=== PATIENT | male | born 1950 | race Caucasian/White ===

== ENCOUNTER 2017-07-09 09:00 | Outpatient (RCR) ==
--- NOTE | 2017-06-24 17:03 | RS.OTDNOTE ---
Subjective Date of Note: 06/24/17 Visit #: 3 Date of Evaluation: 06/19/17 Payer Source: MEDICARE Date of Onset/Injury/Change in Status: 08/25/16 Surgery Performed?: Yes Treatment Diagnosis: Right adhesive capsulitis Treatment Side (optional): Right *Precautions: At risk for frozen shoulder Prior Level of Function.....Patient was independent with: ADL's, Self Care, Work /Vocation, Caregiving, Ambulation/Mobility, Community Integration/Access History of Condition/Mechanism of Injury: Pt began having pain in the Right shoulder in August of this year. His pain progressed and his function decreased. Pt had a Right shoulder manipulation on 06/19/17. Level of Function: Pt has difficulty with carrying items, lifting, and moving. Functional Limitations: Sleep, ADL's, Reaching, Pushing, Pulling, Lifting, Carrying Current Complaints/Gains: Pt complains of popping feeling and pain in the Right shoulder. Pt has pain with full shoulder flexion. Pain Assessment - Pain Description Pain Description: Tightness Pain Location: Right anterior deltoid of RUE shoulder. Pectoralis major tender. Pain with internal rotation. Pain Description: sore Current Pain Intensity: 3 Modalities - Treatment Modality: Ultrasound Parameters/Method Applied: .4 w/cm2 for 8 minutes to RUE anterior deltoid with RUE behind his back. Treatment Area: Right anterior deltoid, Pt in supine and RUE in EXT. Rot. and Int. Rot. Patient Position: Supine - Hot Pack/Cryotherapy Treatment: Cryotherapy Interventions - Exercise/Activities Exercise/Activities/Manual Therapy: Pt educated regarding home exercise program , US to right shoulder to decrease shoulder pain. Pt completed isometric exercises holding 5 seconds each rep for : shoulder adduction x 10 reps, abduction x 10 reps, Int. Rot. x 10 reps, Ext. Rot. x 10 reps, shoulder flexion x 10 reps, shoulder extension x 10 reps. Pt inclined to 45 degrees for Arom of shoulder flexion. HOME EXERCISE PROGRAM: Pendulum exercises, stretching supine: shldr flexion, abduction, adduction, int. rot. , ext. rot. - Objective Findings Objective Findings:: soreness with full supine shoulder flexion. - Charges Total Direct Minutes: 45 Total Treatment Time: 55 Procedures billed for this date of service:: EX x 2, US, CP Assessment Assessment: Pt AROM is improving. Pt has popping in the Right shoulder. Pt Patient Education: Education of diagnosis, Home Exercise Program, Education of Plan of Care Problems/Comments: OT added isometric exercises to help balance the strength of the rotator cuff tendons. Patient demonstrates compliance with HEP?: Yes Short Term Goals Goal #1: Pt to increase Internal Rotation to be WFL. Goal to be met by: 06/26/17 Progress towards goal: Progressing Goal #2: Pt to increase RUE strength to 4/5. Goal to be met by: 06/26/17 Progress towards goal: Progressing Goal #3: Pt to increase RUE strength to 4/5. Goal to be met by: 07/03/17 Progress towards goal: Progressing Goal #4: Pt to have full shoulder flexion in sitting position. 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 Goal to be met by: 07/10/17 Progress towards goal: Progressing Goal #2: Pt to increase RUE strength to 4+/5. Goal to be met by: 07/10/17 Progress towards goal: Progressing Goal #3: Pt to be independent with HEP. Goal to be met by: 07/10/17 Progress towards goal: Progressing Goal #4: Pt to have full AROM of RUE. Goal to be met by: 07/10/17 Progress towards goal: Progressing Plan PLAN OF CARE EXPIRES ON:: 07/17/17 ORDER # VISITS AND/OR THROUGH DATE: 07/17/17 PLAN: Continue Plan of Care Frequency: 3 X week Duration: 3 weeks
--- NOTE | 2017-06-25 16:57 | RS.OTDNOTE ---
Subjective Date of Note: 06/25/17 Visit #: 4 Date of Evaluation: 06/19/17 Payer Source: MEDICARE Date of Onset/Injury/Change in Status: 08/25/16 Surgery Performed?: Yes Treatment Diagnosis: Right adhesive capsulitis Treatment Side (optional): Right *Precautions: At risk for frozen shoulder Prior Level of Function.....Patient was independent with: ADL's, Self Care, Work /Vocation, Caregiving, Ambulation/Mobility, Community Integration/Access History of Condition/Mechanism of Injury: Pt began having pain in the Right shoulder in August of this year. His pain progressed and his function decreased. Pt had a Right shoulder manipulation on 06/19/17. Level of Function: Pt has difficulty with carrying items, lifting, and moving. Functional Limitations: Sleep, ADL's, Reaching, Pushing, Pulling, Lifting, Carrying Current Complaints/Gains: Popping and clicking in the RUE shoulder with shoulder flexion and codman's. Pain Assessment - Pain Description Pain Description: Aching Pain Location: Right anterior deltoid of RUE shoulder. Pectoralis major tender. Pain with internal rotation, shoulder flexion. Pain Description: aches Current Pain Intensity: 2/10 Modalities - Treatment Modality: Ultrasound Parameters/Method Applied: .4 w/cm2 for 8 minutes to anterior deltoid and bursa area. Treatment Area: RUE in ext. Rot. and then moved to Internal rotation Patient Position: Supine - Hot Pack/Cryotherapy Treatment: Cryotherapy Interventions - Exercise/Activities Exercise/Activities/Manual Therapy: Pt educated regarding home exercise program , US to right shoulder to decrease shoulder pain. Pt completed isometric exercises holding 5 seconds each rep for : shoulder adduction x 10 reps, abduction x 10 reps, Int. Rot. x 10 reps, Ext. Rot. x 10 reps, shoulder flexion x 10 reps, shoulder extension x 10 reps. Pt inclined to 45 degrees for Arom of shoulder flexion. Isolated supraspinatus strengthening of supine shoulder flexion to 45 degrees at a 90 degree angle from abduction x 15 reps to decrease the tendon weakness. HOME EXERCISE PROGRAM: Pendulum exercises, stretching supine: shldr flexion, abduction, adduction, int. rot. , ext. rot. - Objective Findings Objective Findings:: soreness with full supine shoulder flexion. - Charges Total Direct Minutes: 50 Total Treatment Time: 60 Procedures billed for this date of service:: EX x 2, US, CP Assessment Assessment: Pt's AROM is improving. Pt continues with some clicking and popping in his shoulder. Pt reports it is sore. Problems/Comments: clicking and popping of RUE shoulder Patient demonstrates compliance with HEP?: Yes Short Term Goals Goal #1: Pt to increase Internal Rotation to be WFL. Goal to be met by: 06/26/17 Progress towards goal: Progressing Goal #2: Pt to increase RUE strength to 4/5. Goal to be met by: 06/26/17 Progress towards goal: Progressing Goal #3: Pt to increase RUE strength to 4/5. Goal to be met by: 07/03/17 Progress towards goal: Progressing Goal #4: Pt to have full shoulder flexion in sitting position. Goal to be met by: 07/03/17 Progress towards goal: Progressing Assisted Goals Goal #1: Pt to increase Internal Rotation to be WNL. Goal to be met by: 07/10/17 Progress towards goal: Progressing Goal #2: Pt to increase RUE strength to 4+/5. Goal to be met by: 07/10/17 Progress towards goal: Progressing Goal #3: Pt to be independent with HEP. Goal to be met by: 07/10/17 Progress towards goal: Progressing Goal #4: Pt to have full AROM of RUE. Goal to be met by: 07/10/17 Progress towards goal: Progressing Plan PLAN OF CARE EXPIRES ON:: 07/17/17 ORDER # VISITS AND/OR THROUGH DATE: 07/17/17 Frequency: 3 X week Duration: 3 weeks
--- NOTE | 2017-06-29 10:26 | RS.OTDNOTE ---
Subjective Date of Note: 06/29/17 Visit #: 5 Date of Evaluation: 06/19/17 Payer Source: MEDICARE Date of Onset/Injury/Change in Status: 08/25/16 Surgery Performed?: Yes Treatment Diagnosis: Right adhesive capsulitis Treatment Side (optional): Right *Precautions: At risk for frozen shoulder Prior Level of Function.....Patient was independent with: ADL's, Self Care, Work /Vocation, Caregiving, Ambulation/Mobility, Community Integration/Access History of Condition/Mechanism of Injury: Pt began having pain in the Right shoulder in August of this year. His pain progressed and his function decreased. Pt had a Right shoulder manipulation on 06/19/17. Level of Function: Pt has difficulty with carrying items, lifting, and moving. Functional Limitations: Sleep, ADL's, Reaching, Pushing, Pulling, Lifting, Carrying Current Complaints/Gains: Pt states UE ROM and pain are much better and has been since manipulation. States he returns to MD in 2 or 3 wks and that a cortisone shot has mohinder discussed but pt reguards as a band-aid, not a fix. States popping continues in and points to anterior shoulder. Pain Assessment - Pain Description Pain Description: Aching Pain Location: Right anterior deltoid of RUE shoulder. Pectoralis major tender. Pain with internal rotation, shoulder flexion. Pain Description: aches Current Pain Intensity: 0 Worst Pain Intensity: 2 Modalities - Treatment Modality: Ultrasound Parameters/Method Applied: .04w/cm2 x 10 mins Treatment Area: anterior shoulder Patient Position: Sitting - Treatment Modality: Class 4 Laser Parameters/Method Applied: Edma protocol Treatment Area: shoulder - Hot Pack/Cryotherapy Treatment: Cryotherapy (Ice massage performed with MT x 5-6 mins) Interventions - Exercise/Activities Exercise/Activities/Manual Therapy: Pt educated regarding home exercise program , US to right shoulder to decrease shoulder pain. Pt completed isometric exercises holding 5 seconds each rep for : shoulder adduction x 10 reps, abduction x 10 reps, Int. Rot. x 10 reps, Ext. Rot. x 10 reps, shoulder flexion x 10 reps, shoulder extension x 10 reps. Pt inclined to 45 degrees for Arom of shoulder flexion. Isolated supraspinatus strengthening of supine shoulder flexion to 45 degrees at a 90 degree angle from abduction x 15 reps to decrease the tendon weakness. Blue Tband scap retraction and ER performed x 10/1 with HEP instructions. HOME EXERCISE PROGRAM: Pendulum exercises, stretching supine: shldr flexion, abduction, adduction, int. rot. , ext. rot. - Charges Total Direct Minutes: 58 Total Treatment Time: 58 Procedures billed for this date of service:: US MT CP EX Assessment Patient Education: Education of diagnosis, Body/Joint mechanics, Home Exercise Program, Home Safety, Activity Modification, Education of Plan of Care Patient demonstrates compliance with HEP?: Yes Short Term Goals Goal #1: Pt to increase Internal Rotation to be WFL. Goal to be met by: 06/26/17 Progress towards goal: Partially Met Goal #2: Pt to increase RUE strength to 4/5. Goal to be met by: 06/26/17 Progress towards goal: Met Goal #3: Pt to increase RUE strength to 4/5. Goal to be met by: 07/03/17 Progress towards goal: Met Goal #4: Pt to have full shoulder flexion in sitting position. Goal to be met by: 07/03/17 Progress towards goal: Partially Met Comments: 160-170* AROM [facility]sp Goals Goal #1: Pt to increase Internal Rotation to be WNL. Goal to be met by: 07/10/17 Progress towards goal: Partially Met Goal #2: Pt to increase RUE strength to 4+/5. Goal to be met by: 07/10/17 Progress towards goal: Partially Met Goal #3: Pt to be independent with HEP. Goal to be met by: 07/10/17 Progress towards goal: Partially Met Goal #4: Pt to have full AROM of RUE. Goal to be met by: 07/10/17 Progress towards goal: Partially Met Plan PLAN OF CARE EXPIRES ON:: 07/17/17 ORDER # VISITS AND/OR THROUGH DATE: 07/17/17 PLAN: Cont POC to max fx I, strength, and decrease c/o pain for ADL completion. Frequency: 3 X week Duration: 2 weeks
--- NOTE | 2017-07-02 08:43 | RS.OTDNOTE ---
Subjective Date of Note: 07/01/17 Visit #: 6 Date of Evaluation: 06/19/17 Payer Source: MEDICARE Date of Onset/Injury/Change in Status: 08/25/16 Surgery Performed?: Yes Treatment Diagnosis: Right adhesive capsulitis Treatment Side (optional): Right *Precautions: At risk for frozen shoulder Prior Level of Function.....Patient was independent with: ADL's, Self Care, Work /Vocation, Caregiving, Ambulation/Mobility, Community Integration/Access History of Condition/Mechanism of Injury: Pt began having pain in the Right shoulder in August of this year. His pain progressed and his function decreased. Pt had a Right shoulder manipulation on 06/19/17. Level of Function: Pt has difficulty with carrying items, lifting, and moving. Functional Limitations: Sleep, ADL's, Reaching, Pushing, Pulling, Lifting, Carrying Current Complaints/Gains: Pt continues stating he is pleased with his progress. States popping continues in UE. States good compliance with HEP and applying CP. Pain Assessment - Pain Description Pain Description: Aching Pain Location: Right anterior deltoid of RUE shoulder. Pectoralis major tender. Pain with internal rotation, shoulder flexion. Pain Description: aches Modalities - Treatment Modality: Ultrasound Parameters/Method Applied: 1.5w/cm2 Treatment Area: anterior shoulder - Hot Pack/Cryotherapy Treatment: Cryotherapy (Ice massage/MT) Interventions - Exercise/Activities Exercise/Activities/Manual Therapy: Pt educated regarding home exercise program , US to right shoulder to decrease shoulder pain. Pt completed isometric exercises holding 5 seconds each rep for : shoulder adduction x 10 reps, abduction x 10 reps, Int. Rot. x 10 reps, Ext. Rot. x 10 reps, shoulder flexion x 10 reps, shoulder extension x 10 reps. Pt inclined to 45 degrees for Arom of shoulder flexion. Isolated supraspinatus strengthening of supine shoulder flexion to 45 degrees at a 90 degree angle from abduction x 15 reps to decrease the tendon weakness. Blue Tband scap retraction and ER performed x /2 along with 2# RTC series ex with HEP instructions. HOME EXERCISE PROGRAM: Pendulum exercises, stretching supine: shldr flexion, abduction, adduction, int. rot. , ext. rot. - Objective Findings Objective Findings:: soreness with full supine shoulder flexion. - Charges Total Direct Minutes: 62 Total Treatment Time: 62 Procedures billed for this date of service:: EX2 CP US Assessment Patient Education: Education of diagnosis, Body/Joint mechanics, Home Exercise Program, Home Safety, Activity Modification, Education of Plan of Care Patient demonstrates compliance with HEP?: Yes Short Term Goals Goal #1: Pt to increase Internal Rotation to be WFL. Goal to be met by: 06/26/17 Progress towards goal: Met Goal #2: Pt to increase RUE strength to 4/5. Goal to be met by: 06/26/17 Progress towards goal: Met Goal #3: Pt to increase RUE strength to 4/5. Goal to be met by: 07/03/17 Progress towards goal: Met Goal #4: Pt to have full shoulder flexion in sitting position. 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 Goal to be met by: 07/10/17 Progress towards goal: Partially Met Goal #2: Pt to increase RUE strength to 4+/5. Goal to be met by: 07/10/17 Progress towards goal: Partially Met Goal #3: Pt to be independent with HEP. Goal to be met by: 07/10/17 Progress towards goal: Partially Met Goal #4: Pt to have full AROM of RUE. Goal to be met by: 07/10/17 Progress towards goal: Partially Met Plan PLAN OF CARE EXPIRES ON:: 07/17/17 ORDER # VISITS AND/OR THROUGH DATE: 07/17/17 PLAN: Cont current POC with HEP ed. Plan for DC. Frequency: 3 X week Duration: 2 weeks
--- NOTE | 2017-07-03 08:33 | RS.OTCXNS ---
OT Case Note Date of Scheduled Appointment: 07/03/17 Type: Cancel ([place] is loose)
--- NOTE | 2017-07-06 08:46 | RS.OTDNOTE ---
Subjective Date of Note: 07/03/17 Visit #: 7 Date of Evaluation: 06/19/17 Payer Source: MEDICARE Date of Onset/Injury/Change in Status: 08/25/16 Surgery Performed?: Yes Treatment Diagnosis: Right adhesive capsulitis Treatment Side (optional): Right *Precautions: At risk for frozen shoulder Prior Level of Function.....Patient was independent with: ADL's, Self Care, Work /Vocation, Caregiving, Ambulation/Mobility, Community Integration/Access History of Condition/Mechanism of Injury: Pt began having pain in the Right shoulder in August of this year. His pain progressed and his function decreased. Pt had a Right shoulder manipulation on 06/19/17. Level of Function: Pt has difficulty with carrying items, lifting, and moving. Functional Limitations: Sleep, ADL's, Reaching, Pushing, Pulling, Lifting, Carrying Current Complaints/Gains: Pt states he is pleased with progress but has c/o UE wkness. States good compliance with isometric ex's and applying CP to UE at least daily. Pain Assessment - Pain Description Pain Description: Aching Pain Location: Right anterior deltoid of RUE shoulder. Pectoralis major tender. Pain with internal rotation, shoulder flexion. Pain Description: aches Modalities - Hot Pack/Cryotherapy Comments:: Ice massage/MT to anterior shoulder Interventions - Exercise/Activities Exercise/Activities/Manual Therapy: Pt educated regarding home exercise program , US to right shoulder to decrease shoulder pain. Pt completed isometric exercises holding 5 seconds each rep for : shoulder adduction x 10 reps, abduction x 10 reps, Int. Rot. x 10 reps, Ext. Rot. x 10 reps, shoulder flexion x 10 reps, shoulder extension x 10 reps. Pt inclined to 45 degrees for Arom of shoulder flexion. Isolated supraspinatus strengthening of supine shoulder flexion to 45 degrees at a 90 degree angle from abduction x 15 reps to decrease the tendon weakness. Blue Tband scap retraction and ER performed x 10/2 along with 3# RTC series ex with HEP instructions. HOME EXERCISE PROGRAM: Pendulum exercises, stretching supine: shldr flexion, abduction, adduction, int. rot. , ext. rot. - Objective Findings Objective Findings:: soreness with full supine shoulder flexion. - Charges Total Direct Minutes: 50 Total Treatment Time: 50 Procedures billed for this date of service:: CP EX2 Assessment Patient Education: Education of diagnosis, Body/Joint mechanics, Home Exercise Program, Home Safety, Activity Modification, Education of Plan of Care Patient demonstrates compliance with HEP?: Yes Short Term Goals Goal #1: Pt to increase Internal Rotation to be WFL. Goal to be met by: 06/26/17 Progress towards goal: Met Goal #2: Pt to increase RUE strength to 4/5. Goal to be met by: 06/26/17 Progress towards goal: Met Goal #3: Pt to increase RUE strength to 4/5. Goal to be met by: 07/03/17 Progress towards goal: Met Goal #4: Pt to have full shoulder flexion in sitting position. 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 Goal to be met by: 07/10/17 Progress towards goal: Partially Met Goal #2: Pt to increase RUE strength to 4+/5. Goal to be met by: 07/10/17 Progress towards goal: Met Goal #3: Pt to be independent with HEP. Goal to be met by: 07/10/17 Progress towards goal: Partially Met Goal #4: Pt to have full AROM of RUE. Goal to be met by: 07/10/17 Progress towards goal: Met Plan PLAN OF CARE EXPIRES ON:: 07/10/17 ORDER # VISITS AND/OR THROUGH DATE: 07/17/17 PLAN: Pt progressing well and has met 4/4STG's and 2/4 LTG's. Pt to attend therapy x 2 this wk to max fx strength and I with HEP. Frequency: 2 X week Duration: 1 week
--- NOTE | 2017-07-07 08:44 | RS.OTDNOTE ---
Subjective Date of Note: 07/06/17 Visit #: 8 Date of Evaluation: 06/19/17 Payer Source: MEDICARE Date of Onset/Injury/Change in Status: 08/25/16 Surgery Performed?: Yes Treatment Diagnosis: Right adhesive capsulitis Treatment Side (optional): Right *Precautions: At risk for frozen shoulder Prior Level of Function.....Patient was independent with: ADL's, Self Care, Work /Vocation, Caregiving, Ambulation/Mobility, Community Integration/Access History of Condition/Mechanism of Injury: Pt began having pain in the Right shoulder in August of this year. His pain progressed and his function decreased. Pt had a Right shoulder manipulation on 06/19/17. Level of Function: Pt has difficulty with carrying items, lifting, and moving. Functional Limitations: Sleep, ADL's, Reaching, Pushing, Pulling, Lifting, Carrying Current Complaints/Gains: Pt pleased with progess. States he will continue with HEP at home. States "muscle soreness" over the wknd. States good compliance with applying CP. Pain Assessment - Pain Description Pain Description: Aching Pain Location: Right anterior deltoid of RUE shoulder. Pectoralis major tender. Pain with internal rotation, shoulder flexion. Pain Description: aches Current Pain Intensity: 0-1 Worst Pain Intensity: 2+ Modalities - Hot Pack/Cryotherapy Treatment: Cryotherapy (x 10 mins following tx) Interventions - Exercise/Activities Exercise/Activities/Manual Therapy: Pt ed cont regarding home exercise program/ progression. Pt completed isometric exercises holding 5 seconds each rep for : shoulder adduction x 10 reps, abduction x 10 reps, Int. Rot. x 10 reps, Ext. Rot. x 10 reps, shoulder flexion x 10 reps, shoulder extension x 10 reps. Pt inclined to 45 degrees for AROM of shoulder flexion. Isolated supraspinatus strengthening of supine shoulder flexion to 45 degrees at a 90 degree angle from abduction 3#x 15 reps/2 to decrease the tendon weakness. Blue Tband scap retraction and ER performed x 10/2 along with 3# RTC series ex with HEP instructions. HOME EXERCISE PROGRAM: Pendulum exercises, stretching supine: shldr flexion, abduction, adduction, int. rot. , ext. rot. - Objective Findings Objective Findings:: soreness with full supine shoulder flexion. - Charges Total Direct Minutes: 40 Total Treatment Time: 50 Procedures billed for this date of service:: EX2 CP Assessment Patient Education: Education of diagnosis, Body/Joint mechanics, Home Exercise Program, Home Safety, Activity Modification, Education of Plan of Care Patient demonstrates compliance with HEP?: Yes Short Term Goals Goal #1: Pt to increase Internal Rotation to be WFL. Goal to be met by: 06/26/17 Progress towards goal: Met Goal #2: Pt to increase RUE strength to 4/5. Goal to be met by: 06/26/17 Progress towards goal: Met Goal #3: Pt to increase RUE strength to 4/5. Goal to be met by: 07/03/17 Progress towards goal: Met Goal #4: Pt to have full shoulder flexion in sitting position. Goal to be met by: 07/03/17 Progress towards goal: Met Group Home Goals Goal #1: Pt to increase Internal Rotation to be WNL. Goal to be met by: 07/10/17 Progress towards goal: Partially Met Goal #2: Pt to increase RUE strength to 4+/5. Goal to be met by: 07/10/17 Progress towards goal: Met Goal #3: Pt to be independent with HEP. Goal to be met by: 07/10/17 Progress towards goal: Partially Met Goal #4: Pt to have full AROM of RUE. Goal to be met by: 07/10/17 Progress towards goal: Met Plan PLAN OF CARE EXPIRES ON:: 07/10/17 ORDER # VISITS AND/OR THROUGH DATE: 07/17/17 PLAN: Pt to attend x 1 tx session and DC I with HEP Frequency: 1 X week Duration: One time treatment
--- NOTE | 2017-07-09 09:34 | RS.OTDNOTE ---
Subjective Date of Note: 07/09/17 Visit #: 9 Date of Evaluation: 06/19/17 Payer Source: MEDICARE Date of Onset/Injury/Change in Status: 08/25/16 Surgery Performed?: Yes Treatment Diagnosis: Right adhesive capsulitis Treatment Side (optional): Right *Precautions: At risk for frozen shoulder Prior Level of Function.....Patient was independent with: ADL's, Self Care, Work /Vocation, Caregiving, Ambulation/Mobility, Community Integration/Access History of Condition/Mechanism of Injury: Pt began having pain in the Right shoulder in August of this year. His pain progressed and his function decreased. Pt had a Right shoulder manipulation on 06/19/17. Level of Function: Pt has difficulty with carrying items, lifting, and moving. Current Complaints/Gains: Pt states he is pleased with progress. 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 Pain Assessment - Pain Description Pain Description: Aching Pain Location: Right anterior deltoid of RUE shoulder. Pectoralis major tender. Pain with internal rotation, shoulder flexion. Pain Description: aches Current Pain Intensity: 0 Worst Pain Intensity: 1+ Interventions - Exercise/Activities Exercise/Activities/Manual Therapy: HEP instruction continued with blue/black t- band and 3-5# hand weight for RTC series and scapular strengthening. HOME EXERCISE PROGRAM: RTC series - Objective Findings Objective Findings:: Pt has made great progress. Scores 78/80 UE fx scale. AROM/strength-WNL5/5. - Charges Total Direct Minutes: 20 Total Treatment Time: 20 Procedures billed for this date of service:: EX Assessment Patient Education: Education of diagnosis, Body/Joint mechanics, Home Exercise Program, Home Safety, Activity Modification, Education of Plan of Care Patient demonstrates compliance with HEP?: Yes Short Term Goals Goal #1: Pt to increase Internal Rotation to be WFL. Goal to be met by: 06/26/17 Progress towards goal: Met Goal #2: Pt to increase RUE strength to 4/5. Goal to be met by: 06/26/17 Progress towards goal: Met Goal #3: Pt to increase RUE strength to 4/5. Goal to be met by: 07/03/17 Progress towards goal: Met Goal #4: Pt to have full shoulder flexion in sitting position. 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 Goal to be met by: 07/10/17 Progress towards goal: Met Goal #2: Pt to increase RUE strength to 4+/5. Goal to be met by: 07/10/17 Progress towards goal: Met Goal #3: Pt to be independent with HEP. Goal to be met by: 07/10/17 Progress towards goal: Met Goal #4: Pt to have full AROM of RUE. Goal to be met by: 07/10/17 Progress towards goal: Met Plan PLAN OF CARE EXPIRES ON:: 07/17/17 ORDER # VISITS AND/OR THROUGH DATE: 07/17/17 PLAN: Pt DC'd at this time. Pt I with HEP. Frequency: DC Duration: DC
--- NOTE | 2017-07-13 13:37 | RS.OTQKDC ---
OT Discharge Date of Discharge: 07/09/17 Number of Visits: 9 Reason for Discharge: UE Functional scale is 78/80. Scores 4/4 no difficulty all 78/80 - 2 scores of 3 , laundering clothes and carrying small suitcase. Independent with HEP. Blue/black T- Band 3-5# weight TE, 5/5 WNL.
== END 2017-07-23 ==
PROVIDERS: ATTEND Orthopaedic Surgery
DX: M75.01 Adhesive capsulitis of right shoulder (principal)

== ENCOUNTER 2017-12-04 08:19 | Outpatient (CLI) | payer OTHER | END 2017-12-04 08:20 | disposition home or self-care (01) | LOC: LAB 08:19 | PROVIDERS: ATTEND Internal Medicine Endocrinology, Diabetes & Metabolism | DX: E83.52 Hypercalcemia (principal); E04.1 Nontoxic single thyroid nodule; E55.9 Vitamin D deficiency, unspecified | CPT/HCPCS: 36415; 80053; 82306; 83970; 84402; 84403; 84439; 84443 ==

== ENCOUNTER 2017-12-04 12:45 | Emergency (ER) ==
[2017-12-04 12:53] VITALS: BP 136/94; TEMP 97.9; BMI 26.4
[2017-12-04] MEDS ORDERED: SODIUM CHLORIDE 1,000 ML IV STA (13:22)
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
== END 2017-12-04 15:23 | disposition home or self-care (01) ==
LOC: ED 12:45
DX: S09.90XA Unspecified injury of head, initial encounter (principal); M54.2 Cervicalgia; S00.81XA Abrasion of other part of head, initial encounter; S49.92XA Unspecified injury of left shoulder and upper arm, initial encounter; S69.92XA Unspecified injury of left wrist, hand and finger(s), initial encounter; S59.912A Unspecified injury of left forearm, initial encounter; V29.9XXA Motorcycle rider (driver) (passenger) injured in unspecified traffic accident, initial encounter
CPT/HCPCS: 36415; 80053; 85025; 96361; 99283

== ENCOUNTER 2017-12-06 07:53 | Emergency (ER) | payer OTHER ==
[2017-12-06 08:03] VITALS: BP 147/84; TEMP 98.2; BMI 26.6
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
[2017-12-06] MEDS ORDERED: TENIVAC IM ONE (08:58)
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
== END 2017-12-06 09:30 | disposition home or self-care (01) ==
LOC: ED 07:53
DX: S05.12XD Contusion of eyeball and orbital tissues, left eye, subsequent encounter (principal); V89.2XXD Person injured in unspecified motor-vehicle accident, traffic, subsequent encounter
CPT/HCPCS: 90471; 90714; 99282

== ENCOUNTER 2018-02-18 07:50 | Outpatient (CLI) | END 2018-02-18 07:51 | disposition home or self-care (01) | LOC: LAB 07:50 | PROVIDERS: ATTEND Internal Medicine Endocrinology, Diabetes & Metabolism | DX: E83.52 Hypercalcemia (principal); E04.1 Nontoxic single thyroid nodule; E55.9 Vitamin D deficiency, unspecified | CPT/HCPCS: 36415; 80053; 82306; 83970 ==